=== PATIENT | female | born 1960 | race Hispanic/Latino ===

== ENCOUNTER 2024-06-03 06:41 | Inpatient (IN) | payer SELFPAY ==
[~2024-06-03] VITALS: Ht 157.5 cm; Wt 63.5 kg
[2024-06-03] MEDS ORDERED: LACTATED RINGERS 1000ML 1,000 ML IV ONE (07:00)
[2024-06-03] MEDS ORDERED: 0.9%NACL 1000ML 1,000 ML IV ONE (07:00)
[2024-06-03] MEDS: 0.9%NACL 1000ML 1,905 ML IV ONE (07:05)
[2024-06-03 07:08] LABS: BASOPHILS # (AUTO) 0.08 K/uL (0.00-0.20); BASOPHILS % (AUTO) 0.6 % (0.0-5.0); EOSINOPHILS # (AUTO) 0.07 K/uL (0.00-0.70); EOSINOPHILS % (AUTO) 0.5 % (0.0-8.0); HEMATOCRIT 35.8 % (36-48); IMMATURE GRANULOCYTE ABSOLUTE 0.07 K/uL (0-1); LYMPHOCYTES # (AUTO) 5.1 K/uL (1.0-4.8); LYMPHOCYTES % (AUTO) 37.9 % (21.0-51.0); MEAN CORPUSCULAR HGB CONC 31.6 g/dL (32.0-36.0); MEAN CORPUSCULAR VOLUME 91.8 fL (79-99); MONOCYTES # (AUTO) 0.4 K/uL (0.1-1.0); MONOCYTES % (AUTO) 3.3 % (3.0-13.0); NEUTROPHILS # (AUTO) 7.7 K/uL (1.8-7.7); NEUTROPHILS % (AUTO) 57.2 % (40.0-77.0); PLATELET COUNT (AUTO) 302 K/uL (130-400); RED CELL DISTRIBUTION WIDTH 12.5 % (11.0-15.5); WHITE BLOOD COUNT (AUTO) 13.5 K/uL (4.8-10.8)
[2024-06-03] MEDS: PANTOPrazole 40 MG/VIAL IVP ONE (07:08)
[2024-06-03] MEDS: ondanSETRON 4MG INJ IVP ONE (07:08)
[2024-06-03] MEDS: NOREPINEPHRIN 4MG/NS 250ML 250 ML IV ONE (07:14)
--- NOTE | 2024-06-03 07:18 | NUR ---
LAC-9.0 ERMD MADE AWARE
[2024-06-03 07:21] LABS: ALBUMIN 3.8 g/dL (3.5-5.0); CREATININE 1.4 mg/dL (0.5-1.0); POTASSIUM 3.5 mmol/L (3.5-5.1)
[2024-06-03 07:25] LABS: BILIRUBIN,TOTAL 0.5 mg/dL (0.2-1.0); TOTAL PROTEIN, SERUM 7.3 g/dL (6.0-8.3)
[2024-06-03] MEDS ORDERED: ZOSYN 3.375GM +NS 50ML IV ONE (07:30)
[2024-06-03] MEDS ORDERED: cefTRIAXone 1G VIAL IVPB ONE (07:30)
--- NOTE | 2024-06-03 07:43 | NUR ---
[id number] ERMD MADE AWARE
--- NOTE | 2024-06-03 07:44 | ERN ---
ED Note History of Present Illness Stated Complaint: ABDOMINAL PAIN, CHEST PAIN Chief Complaint: Abdominal Pain Time Seen by MD: 07:29 Dictation: 64-year-old female presents to the ED for evaluation of abdominal pain onset last night. Patient reports weakness, vomiting and chest pain, but denies any other associated symptoms at this time. EMS reports patient was hypotensive, they administered IV fluids and Levophed on route. Allergies: Coded Allergies: No Known Allergies (Unverified Allergy, Unknown, 06/03/24) Past Medical History Past Medical History: Diabetes-Type II, GERD, Hypertension Surgical History: Hysterectomy Review of System Dictation Constitutional: Negative for fever,chills, and weight loss Eyes: Negative for injury, pain,redness, and discharge ENT: Negative for injury,pain or swelling Cardiovascular: Positive for chest pain negative for palpitations, and edema Respiratory: Negative for shortness of breath, cough, and wheezing, Abdomen/GI: Positive for abdominal pain vomiting, negative for nausea, diarrhea, and constipation Back: Negative for injury and pain : Negative for injury, bleeding and discharge MS/Extremity: Negative for injury and deformity Skin: Negative for rash, and discoloration Neuro: Positive for weakness, Negative for headache, numbness, tingling, and seizure Psych: Negative for suicide ideation, homicidal ideation, and hallucinations Initial Vital Sign VS Vital Signs Date Time Temp Pulse Resp B/P (MAP) Pulse Ox O2 Delivery O2 Flow Rate FiO2 06/03/24 06:48 96.3 53 24 63/37 100 Room Air 0 06/03/24 06:50 21 Physical Exam Dictation General: awake, alert, patient is uncomfortable Head/Face: Normocephalic, atraumatic Eyes: PERRL, EOMI, vision at baseline ENT: oral cavity clear, TMs clear, no signs of infection Neck: Trachea midline, supple, no nuchal rigidity Cardiovascular: Bradycardic, No MRGs, no JVD, delayed capillary refills Respiratory: CTAB, no respiratory distress, No rales or wheezes Abdomen: Soft, non-tender, non-distended, normal bowel sounds, no guarding or rebound. Skin: Warm, dry, normal turgor, no rash, pale, cold to touch MS/Extremity: Pulses equal, no cyanosis, neurovascular intact, FROM Neuro: COAx4, GCS 15, strength 5/5, CN 2-12 intact, normal cerebellar exam, normal gait, Psych: Normal behavior, mood, and affect normal Results (Laboratory/Radiology) Laboratory/Radiology Laboratory Tests Test 06/03/24 06:53 06/03/24 07:00 06/03/24 07:20 Sodium Level 133 mmol/L (136-145) L Potassium Level 3.5 mmol/L (3.5-5.1) Chloride Level 98 mmol/L (101-111) L Carbon Dioxide Level 20 mmol/L (21-32) L Blood Urea Nitrogen 16 mg/dL (7-18) Creatinine 1.4 mg/dL (0.5-1.0) H Glomerular Filtration Rate Calc 42 mL/min (>90) Random Glucose 494 mg/dL (70-105) *H Lactic Acid Level 9.0 mmol/L (0.8-2.5) H Total Calcium 11.4 mg/dL (8.5-10.1) H Total Bilirubin 0.5 mg/dL (0.2-1.0) Aspartate Amino Transf (AST/SGOT) 29 U/L (10-37) Alanine Aminotransferase (ALT/SGPT) 21 U/L (12-78) Alkaline Phosphatase 77 U/L (50-136) Total Creatine Kinase 81 U/L (21-232) Total Protein 7.3 g/dL (6.0-8.3) Albumin 3.8 g/dL (3.5-5.0) Lipase 32 U/L (16-77) White Blood Count 13.5 K/uL (4.8-10.8) H Red Blood Count 3.90 MIL/uL (4.00-5.50) L Hemoglobin 11.3 g/dL (12.0-16.0) L Hematocrit 35.8 % (36-48) L Mean Corpuscular Volume 91.8 fL (79-99) Mean Corpuscular Hemoglobin 29.0 pg (27.0-33.0) Mean Corpuscular Hemoglobin Concent 31.6 g/dL (32.0-36.0) L Red Cell Distribution Width 12.5 % (11.0-15.5) Platelet Count 302 K/uL (130-400) Mean Platelet Volume 10.9 fL (7.5-10.5) H Immature Granulocyte % (Auto) 0.5 % (0-1) Neutrophils (%) (Auto) 57.2 % (40.0-77.0) Lymphocytes (%) (Auto) 37.9 % (21.0-51.0) Monocytes (%) (Auto) 3.3 % (3.0-13.0) Eosinophils (%) (Auto) 0.5 % (0.0-8.0) Basophils (%) (Auto) 0.6 % (0.0-5.0) Neutrophils # (Auto) 7.7 K/uL (1.8-7.7) Lymphocytes # (Auto) 5.1 K/uL (1.0-4.8) H Monocytes # (Auto) 0.4 K/uL (0.1-1.0) Eosinophils # (Auto) 0.07 K/uL (0.00-0.70) Basophils # (Auto) 0.08 K/uL (0.00-0.20) Absolute Immature Granulocyte (auto 0.07 K/uL (0-1) Segmented Neutrophils % 59 % (40-70) Band Neutrophils % 3 % (0-2) H Lymphocytes % (Manual) 22 % (22-44) Monocytes % (Manual) 5 % (2-9) Basophils % (Manual) 1 % (0-2) Nucleated Red Blood Cells 0.0 % (0.0-0.19) Differential Comment MANUAL DIFFERENTIAL Reactive Lymphocytes 10 % (0-0) H White Cell Morphology Comment CONSISTENT W/DIFF Platelet Morphology Comment ADEQUATE Red Blood Cell Morphology NORMAL Prothrombin Time 10.9 SEC (9.6-11.6) Prothromb Time International Ratio 1.03 (0.85-1.15) Activated Partial Thromboplast Time 21.4 SEC (26.3-35.5) L Troponin I High Sensitivity 2452 ng/L (4-50) *H Whole Blood Glucose 372 MG/DL (70-110) H Labs Reviewed?: Yes EKG Comment: EKG 06/03/2024 time 8:03 a.m. ventricular rate 68, NJ 137, QRS D 156, QT 447. Sinus rhythm, ventricular premature complex, RBBB and LAFB. CT Scan Comment: REASON: r/o SBo ORDERING PHYSICIAN: JAZMIN GONZALEZ MD PROCEDURE: CAP WO - CT CHEST/ABD/PELV W/O CONTRAST CT CHEST/ABD/PELV W/O CONTRAST HISTORY: Small bowel obstruction COMPARISON: None TECHNIQUE: Multiple sequential axial images of the chest were obtained from the thoracic inlet through upper abdomen. Patient was not given contrast through intravenous route. FINDINGS: There are bilateral groundglass pulmonary infiltrates. No pleural effusion or pericardial effusion is seen. There is no evidence of pneumothorax. Borderline in size mediastinal lymph nodes are seen. The heart is not enlarged. Coronary arterial calcifications are seen. Degenerative changes of the thoracolumbar spine are present. There is no evidence of adrenal nodule. IMPRESSION: 1. Bilateral groundglass patchy pulmonary infiltrates. CT CHEST/ABD/PELV W/O CONTRAST HISTORY: Small bowel obstruction COMPARISON: None TECHNIQUE: Multiple sequential axial images of the abdomen and pelvis were obtained from the dome of the diaphragm through symphysis pubis. Patient was not given contrast through intravenous route. Oral contrast was not given. FINDINGS: Gallstones are seen in the gallbladder. Fatty changes of the liver are noted. Liver measures 19 cm. Mild small bowel dilatation is seen with fluid-filled may be related to enterocolitis. There is mild diverticulosis. The liver, spleen, adrenal glands and pancreas are unremarkable. There is no evidence of hydronephrosis bilaterally. No evidence of renal stone is seen. Fecal material is seen in the colon. There are normal size retroperitoneal and mesenteric lymph nodes. No ascites is seen. No CT evidence of acute appendicitis is seen. Clinical correlation is recommended. Pelvic sidewalls are symmetric bilaterally. Bladder is poorly distended with fluid filled. IMPRESSION: 1. Gallstones in the gallbladder. Mild small bowel dilatation with fluid-filled may be related to enterocolitis. Fecal material in the colon. CT was performed with one or more following dose reduction techniques: automated exposure control, adjustment of the mA and kv according to patient's size, or use of a iterative reconstruction technique. DICTATED BY: KAROLINE ELLINGTON MD DATE: 06/03/24828 ED Course ED Course Orders Procedure Category Date Status Time Cbc With Differential LAB 06/03/24 Complete 06:53 Comprehensive LAB 06/03/24 Complete Metabolic Panel 06:53 Troponin I High LAB 06/03/24 Complete Sensitivity 06:53 Urinalysis Profile LAB 06/03/24 Logged 06:53 12 Lead Ekg Tracing- EKG 06/03/24 Complete Technical 06:53 Lactated Ringers PHA 06/03/24 Complete 1000ml (Lactated 07:00 Ondansetron 4mg Inj PHA 06/03/24 Complete (Zofran 4mg Inj) 07:00 Pantoprazole 40mg Inj PHA 06/03/24 Complete (Protonix 40mg Inj 07:00 Creatine Kinase, Total LAB 06/03/24 Complete 06:53 Lipase LAB 06/03/24 Complete 06:53 0.9%Nacl 1000ml (Ns PHA 06/03/24 Complete 1000ml) 07:00 Blood Cult EVELYNE 06/03/24 In Process 06:56 Culture Urine EVELYNE 06/03/24 Logged 06:56 0.9%Nacl 1000ml (Ns PHA 06/03/24 Complete 1000ml) 07:00 Norepinephrin 4mg/Ns PHA 06/03/24 Complete 250ml (Levophed 4mg 07:04 Chest 1vw RAD 06/03/24 Resulted 07:04 Ceftriaxone 1g Vial PHA 06/03/24 Complete (Rocephine 1g Inj) 07:30 Lactic Acid (Removed) LAB 06/03/24 Complete 06:53 Nurse Driven Ley SHAYLA 06/03/24 In Process Removal Pro 07:20 Vasopressin 20 PHA 06/03/24 Complete Units/Ml 1ml Vi 07:25 Zosyn 3.375gm+Ns 50ml PHA 06/03/24 Complete (Zosyn 3.375gm+Ns 07:30 Vasopressin 20 PHA 06/03/24 In Process Units/Ml 1ml Vi 08:00 Norepinephrin 4mg/Ns PHA 06/03/24 In Process 250ml (Levophed 4mg 08:00 Phenylephrine Hcl PHA 06/03/24 In Process (Phenylephrine Hcl) 08:00 Ct Chest/Abd/Pelv W/O CT 06/03/24 Resulted Contrast 07:43 Morphine 4mg Syg PHA 06/03/24 Complete (Morphine 4mg Syg) 08:30 12 Lead Ekg Tracing- EKG 06/03/24 Complete Technical 08:07 Arterial Blood Gas RT 06/03/24 Transmitted 08:10 Initiate Heparin SHAYLA 06/03/24 In Process Treatment Pro 08:11 Prothrombin Time With LAB 06/03/24 Complete INR 08:11 Partial LAB 06/03/24 Complete Thromboplastin Time 08:11 Heparin 5,000 Unit PHA 06/03/24 In Process Vial (Heparin 5,000 U 09:00 Heparin 25,000 PHA 06/03/24 In Process Units/250ml D5w 09:00 Heparin Protocol CPOE 06/03/24 Transmitted Monitoring 08:11 Midazolam Hcl (Versed) PHA 06/03/24 Complete 08:13 12 Lead Ekg Tracing- EKG 06/03/24 Complete Technical 06:50 Chest 1vw RAD 06/03/24 Resulted 08:23 Insurance Clerk Procedure CATH 06/03/24 In Process Request 12:00 Amiodarone 150mg Vial PHA 06/03/24 Complete (Cordarone 150mg V 08:25 Amiodarone 150mg Vial PHA 06/03/24 Complete (Cordarone 150mg V 08:25 Amiodarone 900mg Vial PHA 06/03/24 In Process (Cordarone 900mg V 09:00 Amiodarone 900mg Vial PHA 06/03/24 In Process (Cordarone 900mg V 09:00 Atropine 1mg Syg PHA 06/03/24 Complete (Atropine 1mg Syg) 08:48 Lidocaine Hcl PHA 06/03/24 Complete 400mg/20ml (Lidocaine 08:48 Fentanyl Citrate Pf PHA 06/03/24 Complete 0.05 Mg/Ml (Fentanyl 08:48 Midazolam Hcl (Versed) PHA 06/03/24 Complete 08:48 Iohexol (Omnipaque) PHA 06/03/24 Complete 08:48 Heparin 10,000 PHA 06/03/24 Complete Unit/10ml (Heparin 08:48 Dopamine Hcl 400 PHA 06/03/24 Complete Mg/D5%-Water (Intropin 08:48 Heparin-Ns 1,000 PHA 06/03/24 Complete Unit/500 Ml 08:49 Nitroglycerin 50mg PHA 06/03/24 Complete Vial (Tridil 50mg/10m 08:49 Midazolam Hcl (Versed) PHA 06/03/24 Complete 09:30 Etomidate 20mg Vial PHA 06/03/24 Complete (Amidate 20mg Vial) 09:30 Amiodarone 150mg Vial PHA 06/03/24 In Process (Cordarone 150mg V 09:30 Epinephrine Pf 1mg PHA 06/03/24 Complete (1:1,000) (Adrenaline 09:35 Admit Orders ADM 06/03/24 Transmitted 09:35 Norepinephrine PHA 06/03/24 Complete Bitartrate 09:40 Manual Differential LAB 06/03/24 Complete 07:00 Vital Signs Date Time Temp Pulse Resp B/P (MAP) Pulse Ox O2 Delivery O2 Flow Rate FiO2 06/03/24 08:50 78 16 73/44 93 Non-Rebreather+ 12 60 06/03/24 08:45 98.4 87 16 125/83 100 Room Air* 0 60 Non-Rebreather+ 06/03/24 08:32 87 100 06/03/24 08:30 64 20 122/74 88 Room Air* 12 60 Non-Rebreather+ 06/03/24 08:30 73/44 06/03/24 08:10 64 18 108/69 99 Non-Rebreather+ 12 60 06/03/24 07:56 98.4 51 24 93/61 100 Nasal Cannula* 2 28 06/03/24 07:45 97.5 80 20 122/79 100 Nasal Cannula* 2 28 06/03/24 07:45 97.5 59 20 105/66 99 Nasal Cannula* 2 28 06/03/24 07:15 96.3 48 20 56/32 100 Room Air* 0 21 06/03/24 07:14 105/54 06/03/24 07:00 96.3 51 20 66/39 100 Room Air* 0 21 06/03/24 06:50 51 20 99 Room Air* 0 21 06/03/24 06:48 96.3 53 24 63/37 100 Room Air 0 HEART Score Response (Comments) Value History: Low suspicion (0) 0 EKG: Normal 0 Age: 45-65yrs (+1) 1 Risk Factors: 1-2 risk factors (+1) 1 Initial Troponin: >3x Normal Limit (+2) 2 HEART Score Risk: Mod Risk for MACE (4-6) Total 4 Medical Decision Making MDM MDM: Differential diagnosis: hypoxemia, abdominal pain, STEMI Dr. Avalos took patient to Cathlab 0902- Hospitalist consult ICU team is Holding ICU admission due to cardiac arrest during metallurgical laboratory assistant procedure Will start IV antibiotics, fluids and pressors due to concern for septic shock. Rationale: Tests considered and ordered secondary to shared decision making incl ude: labs, ECG and radiology Risk of complication and/or morbidity or mortality of patient management: None Medications-Per medication reconciliation Need for hospitalization: Patient does meet criteria for hospitalization. Need for emergency major/minor surgery:yes I independently interpreted the test that were performed, results were reviewed by me and considered findings on radiology if ordered. Medical management and examination interpretation discussions were had by me with other qualified healthcare professionals as indicated for the patient's care. Patient was handed off at shift change, presentation was an unstable patient who arrived with hypotension and bradycardia systolic blood pressure was in the 60s upon arrival with assembler 1st shift, patient was started on IV fluids pressors and antibiotics due to the concern for septic shock, also concern for acute inferior RI however patient. Clinically unstable to take the metallurgical laboratory assistant and required rule out of AAA patient was scan without contrast no obvious dissection was noted moved back to the resuscitation room, at which point patient oxygen and started to drop was placed on non-rebreather, and required RSI intubation, patient was intubated with PEEP valve to avoid for anai intubation arrest. Patient had intermittent episodes of hypotension and had brief cardiac arrest requiring CPR/ACLS protocol followed two rounds of epi and chest compressions were done, patient at return of spontaneous circulation and had one run of monomorphic ventricular tachycardia with that was defibrillated at 200 joules immediately with conversion into sinus rhythm and they palpable central pulse. At which point patient was anticoagulated with heparin given amiodarone and metallurgical laboratory assistant was called for evaluation Dr. Avalos came to the bedside and agreed with taking patient to metallurgical laboratory assistant now that she was intubated and maintaining a stable blood pressure. Family was updated that patient was gravely ill and had a high likelihood of cardiac arrest and the rest of survival due to be in cardiogenic shock with an RI. Pt transferred to rn lab and admit to ICU spoke to cell operation supervisor who agrees with treatment plan and admission. Procedure Time of Intubation: 08:23 Intubation Method: orotracheal Tube Size (cm): 7.5 Medications: Versed (Etomidate and rocuronium) Breath Sounds after Intubation: equal Intubation Complications: no complications Post Intubation Xray: Yes Progress Decided to intubate patient for airway protection. The patient was placed on kids activities coach including continuous pulse oximetry. Rapid sequence intubation was conducted. Patient received 2 mg of Versed, 10 mg of etomidate and 50 mg of rocuronium. Using a laryngoscope and a size 7.5 ET tube with stylet the patient was intubated on the 1st attempt. The stylet was removed and cuff balloon was inflated. Appropriate endotracheal tube position was confirmed by direct visualization of vocal cords, fogging of the tube, color change and symmetric breath sounds. The tube was secured at 22 cm at the lips. Additional Procedures: CPR (8:28 a.m. CPR was initiated and ACLS protocol followed. Drugs: Epinephrine, bicarb and calcium. Total CPR time: 4 minutes.) Critical Care Note Critical Time: other (Total critical care time was 40 minutes. Excluding time for procedures. Management of critically ill patient with concern for acute decompensation. Management included interpretation of laboratory values and imaging, hemodynamics, time for consultation with consultants and admitting physician.) DX & DISP Disposition: Inpatient Decision to Admit Date: Jun 03, 2024 Decision to Admit Time: 09:03 Departure Impression: Primary Impression: Cardiogenic shock Additional Impressions: Respiratory failure, Acute RI Condition: Critical Referrals: SELF,REFERRAL (PCP) I personally scribed for JAZMIN GONZALEZ MD ([email or web address]) on 06/03/24 at 08:49. Electronically submitted by Edin Cervantes (BCARRLion StreetO). I personally scribed for JAZMIN GONZALEZ MD ([email or web address]) on 06/03/24 at 09:09. Electronically submitted by Edin Cervantes (BCARRETERO). JAZMIN GONZALEZ MD Jun 03, 2024 07:44
[2024-06-03] MEDS ORDERED: phenylEPHRINE HCL 10 MG in 0.9% NACL 250ML 250 ML IV PRN (08:00)
[2024-06-03] MEDS ORDERED: VASOpressin 20 UNITS/ML 1ML Vi 20 UNITS in 0.9%NACL 100ML 100 ML IV SCH (08:00)
--- NOTE | 2024-06-03 08:10 | NUR ---
ERMD ORDERS INTUBATION, RT CALLED, PT PLACED ON NON REBREATHER MASK AT 12LPM
--- NOTE | 2024-06-03 08:11 | EKG ---
[facility] Test Date: 2024-06-03 Test Time: 08:03:54 Pat Name: QING GARZON Department: EDH Room: ED Gender: F Venereal Disease Investigator: [id number] : 1960 Requested By: JAZMIN GONZALEZ Order Number: [id number] Reading MD: Farnco Avalos Measurements Intervals [place] Rate: 68 P: 98 FL: 137 QRS: -46 QRSD: 156 T: 18 QT: 447 QTc: 482 Interpretive Statements Sinus rhythm Ventricular premature complex RBBB and LAFB No previous ECG available for comparison Electronically Signed On 06-03-2024 18:25:06 MANAGER DIGITAL by Franco Avalos Please click the below link to view image of tracing.
--- NOTE | 2024-06-03 08:14 | EKG ---
[facility] Test Date: 2024-06-03 Test Time: 06:51:52 Pat Name: QING GARZON Department: EDH Room: ED Gender: F Obstetrician And Gynaecologist: [id number] : 1960 Requested By: YADIEL DAMICO Order Number: [id number] Reading MD: Franco Avalos Measurements Intervals [place] Rate: 53 P: 92 OR: 114 QRS: 15 QRSD: 116 T: 127 QT: 445 QTc: 419 Interpretive Statements Sinus rhythm Incomplete left bundle branch block Low voltage, precordial leads LVH with secondary repolarization abnormality Anterior Q waves, possibly due to LVH Borderline ST elevation, inferior leads No previous ECG available for comparison Electronically Signed On 06-03-2024 18:24:56 RESIDENT CARE SPEC by Franco Avalos Please click the below link to view image of tracing.
--- NOTE | 2024-06-03 08:15 | NUR ---
STEMI CALLED AT THIS TIME
--- NOTE | 2024-06-03 08:15 | NUR ---
HEPOARIN 5,000 UNIT BOLUS GIVEN IVP PER ERMD ORDERS
--- NOTE | 2024-06-03 08:15 | EKG ---
[facility] Test Date: 2024-06-03 Test Time: 08:34:50 Pat Name: QING GARZON Department: EDH Room: ED Gender: Female Forming Machine Upkeep Mechanic: [id number] : 1960 Requested By: JAZMIN GONZALEZ Order Number: [id number] Reading MD: Franco Avalos Measurements Intervals [place] Rate: 112 P: 72 PA: 256 QRS: -54 QRSD: 180 T: 102 QT: 438 QTc: 615 Interpretive Statements Wide complex tachycardia Electronically Signed On 06-03-2024 18:25:55 DIAMOND SIZER AND SORTER by Franco Avalos Please click the below link to view image of tracing.
--- NOTE | 2024-06-03 08:18 | NUR ---
VERSED 2 MG GIVEN IVP
--- NOTE | 2024-06-03 08:20 | NUR ---
10MG OF ETOMIDATE GIVEN IVP
--- NOTE | 2024-06-03 08:21 | NUR ---
50MG OF ROCCOROUNIUM GIVEN IVP
--- NOTE | 2024-06-03 08:23 | NUR ---
INTUBATION BY ERMD WITH 7.5 ETT TUBE, 22 LIP, INTUBATION CONFIRMED WITH POST INTUBATION X RAY, BILATERAL BREATH SOUNDS, CHEST RISE AND FALL,
[2024-06-03] MEDS: AMIOdarone 150MG VIAL IV STA (08:26)
--- NOTE | 2024-06-03 08:26 | NUR ---
AMIODARONE 150 MG IVP FOR INTERMITENT V TACH
--- NOTE | 2024-06-03 08:28 | NUR ---
CODE BLUE CALLED, COMPRESSIONS STARTED, REFER TO CODE BLUE FLOW SHEET
[2024-06-03] MEDS ORDERED: morPHINE 4 MG SYG IVP ONE (08:30)
[2024-06-03] MEDS: NOREPINEPHRIN 4MG/NS 250ML 250 ML IV SCH (08:30)
[2024-06-03 08:32] VITALS: PULSE 87; O2SAT 100
--- NOTE | 2024-06-03 08:36 | HMCIMG ---
CT CHEST/ABD/PELV W/O CONTRAST HISTORY: Small bowel obstruction COMPARISON: None TECHNIQUE: Multiple sequential axial images of the chest were obtained from the thoracic inlet through upper abdomen. Patient was not given contrast through intravenous route. FINDINGS: There are bilateral groundglass pulmonary infiltrates. No pleural effusion or pericardial effusion is seen. There is no evidence of pneumothorax. Borderline in size mediastinal lymph nodes are seen. The heart is not enlarged. Coronary arterial calcifications are seen. Degenerative changes of the thoracolumbar spine are present. There is no evidence of adrenal nodule. IMPRESSION: 1. Bilateral groundglass patchy pulmonary infiltrates. CT CHEST/ABD/PELV W/O CONTRAST HISTORY: Small bowel obstruction COMPARISON: None TECHNIQUE: Multiple sequential axial images of the abdomen and pelvis were obtained from the dome of the diaphragm through symphysis pubis. Patient was not given contrast through intravenous route. Oral contrast was not given. FINDINGS: Gallstones are seen in the gallbladder. Fatty changes of the liver are noted. Liver measures 19 cm. Mild small bowel dilatation is seen with fluid-filled may be related to enterocolitis. There is mild diverticulosis. The liver, spleen, adrenal glands and pancreas are unremarkable. There is no evidence of hydronephrosis bilaterally. No evidence of renal stone is seen. Fecal material is seen in the colon. There are normal size retroperitoneal and mesenteric lymph nodes. No ascites is seen. No CT evidence of acute appendicitis is seen. Clinical correlation is recommended. Pelvic sidewalls are symmetric bilaterally. Bladder is poorly distended with fluid filled. IMPRESSION: 1. Gallstones in the gallbladder. Mild small bowel dilatation with fluid-filled may be related to enterocolitis. Fecal material in the colon. CT was performed with one or more following dose reduction techniques: automated exposure control, adjustment of the mA and kv according to patient's size, or use of a iterative reconstruction technique.
--- NOTE | 2024-06-03 08:37 | NUR ---
DR. BOWMAN AT BEDSIDE
[2024-06-03 08:45] VITALS: TEMP 98.4
--- NOTE | 2024-06-03 08:46 | NUR ---
AMIODARONE [address] IVP PER [address] HIDALGO ORDERS
[2024-06-03 08:48] LABS: INR 1.03 (0.85-1.15); PROTHROMBIN TIME 10.9 SEC (9.6-11.6)
[2024-06-03] MEDS ORDERED: MIDAZOLAM HCL 1 MG/ML 2ML VIAL ONE (08:48)
[2024-06-03] MEDS ORDERED: HEParin 10,000 UNIT/10ML (1,000 UNIT/ML) VIAL ONE (08:48)
[2024-06-03] MEDS ORDERED: DOPamine HCL 400 MG/D5%-WATER 0 ML IV ONE (08:48)
[2024-06-03] MEDS ORDERED: ATROPINE 1MG SYG IVP ONE ×2 (08:48→09:43)
[2024-06-03] MEDS ORDERED: LIDOCAINE HCL 400MG/20ML VIAL ONE (08:48)
[2024-06-03] MEDS ORDERED: FENTanyl CITRate PF 50 MCG/1 ML 2ML VIAL ONE (08:48)
[2024-06-03] MEDS ORDERED: IOHEXOL 350 MG/ML 100ML INFUS..BTL IV ONE (08:48)
[2024-06-03 08:49] LABS: PARTIAL THROMBOPLASTIN TIME 21.4 SEC (26.3-35.5)
[2024-06-03] MEDS ORDERED: NITROGLYCERIN 50MG VIAL ONE (08:49)
[2024-06-03] MEDS ORDERED: HEParin-NS 1,000 UNIT/500 ML 1,500 ML IV ONE (08:49)
[2024-06-03 08:50] VITALS: BP 73/44; PULSE 78; RESP 16; O2SAT 93
[2024-06-03] MEDS ORDERED: AMIOdarone 900MG VIAL 360 MG in DEXTROSE 5%-WATER 200 ML IV SCH (09:00)
[2024-06-03] MEDS ORDERED: HEParin 5,000 UNIT VIAL IV PRN (09:00)
[2024-06-03] MEDS ORDERED: HEParin 25,000 UNITS/250ML D5W 250 ML IV SCH (09:00)
[2024-06-03] MEDS ORDERED: AMIOdarone 900MG VIAL 540 MG in DEXTROSE 5%-WATER 300 ML IV SCH (09:00)
[2024-06-03] MEDS: MIDAZOLAM HCL 1 MG/ML 2ML VIAL ONE (09:13)
[2024-06-03] MEDS: AMIOdarone 150MG VIAL ONE (09:16)
[2024-06-03] MEDS: VASOpressin 20 UNITS/ML 1ML VIAL ONE (09:17)
[2024-06-03] MEDS ORDERED: AMIOdarone 150MG VIAL 150 MG in DEXTROSE 5%-WATER 100 ML IV SCH (09:30)
[2024-06-03] MEDS ORDERED: ETOMIDATE 20MG VIAL IVP ONE (09:30)
[2024-06-03] MEDS ORDERED: MIDAZOLAM HCL 1 MG/ML 2ML VIAL IVP ONE (09:30)
[2024-06-03] MEDS ORDERED: EPINEPHrine PF 1MG (1:1,000) 1 MG/ML AMP ONE (09:35)
[2024-06-03] MEDS ORDERED: NOREPINEPHRINE BITARTRATE 1 MG/1 ML ML IV ONE (09:40)
[2024-06-03] MEDS ORDERED: rocuRONium bROMide 10MG/1ML 5ML VL IV ONE (09:43)
[2024-06-03] MEDS ORDERED: AMIOdarone 150MG VIAL IV ONE (09:43)
--- NOTE | 2024-06-03 09:57 | CONS ---
[facility] Cardiology Consultation Note SUMMARY 09/25/2024 This is a 64-year-old female who presented with chest and epigastric pain associated with nausea and vomiting that began yesterday evening. There was concern about a small bowel obstruction and a CT scan of the abdomen was performed which showed evidence of cholelithiasis with small bowel dilatation consistent with possible enterocolitis. Pain began radiating from the epigastric area to the chest and an electrocardiogram showed [address]-elevation and AVF and [address]-elevation in lead two. At that point the patient developed pulseless electrical activity and full ACLS measures were instituted. She was coded for about 5-10 minutes and regained a pulse with a blood pressure of 80 on pressors. I was contacted at that point and recommended that she go emergently to the catheterization laboratory. I explained to the family that she had already had a cardiopulmonary arrest and was in cardiogenic shock and may not survive the procedure. She was brought to the catheterization laboratory and no pulse was obtainable. ACLS was again reinstituted. In the interim venous lines were placed in an arterial line was placed in the left femoral artery. We regained a pulse and blood pressure in the 80s systolic after 20 minutes of CPR and full ACLS measures. 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 A choice PT wire was placed across the area of stenosis and two balloon dilatations were performed distally and proximally. At that point the patient again developed no pulse and CPR and full ACLS measures were reinstituted. Despite this she never regained a pulse and was pronounced at 9:41 p.m.. The family was attended to and condolences given. Final diagnoses acute inferior ST-elevation myocardial infarction complicated by cardiogenic shock and cardiopulmonary arrest with pulseless electrical activity. Report dictated by Kelsy HIDALGO,KELSY Gutierrez MD Jun 03, 2024 09:57
--- NOTE | 2024-06-03 09:59 | PRN ---
Cath Procedure Report CATH PROCEDURE REPORT CARDIAC CATHETERIZATION REPORT Date of Service: Jun 03, 2024 This patient had presented to the emergency room with more than 12 hours of nausea vomiting epigastric and chest pain. It was initially evaluated for possible small-bowel obstruction which was not confirmed on the CT scan. At that point her electrocardiogram showed [address]-elevation and AVF and [address]- elevation in V3. That point the patient developed pulseless electrical activity and received about 5 minutes of CPR. [place] [address] hemoglobin 11.3 platelet count 409633. Potassium 3.5 BUN 16 creatinine 1.4. Troponin was 2452. Lactic acid was 9.0. A pulse was restored with a blood pressure of 80 systolic on pressors. She was brought emergently to the catheterization laboratory after full discussion with the family. I explained to the family that she may arrest again and may not survive the procedure. On arrival in the [facility] no pulse could be obtained. CPR and ACLS was reinstituted. In the interim while performing CPR venous lines and a left femoral arterial line were placed. After 20 minutes a pulse was regained with a blood pressure of again about 80 systolic on pressors. A GR four guiding catheter with side holes was advanced to the aortic root over a J-wire. The J- wire was removed and the catheter engaged into the [place] right coronary artery which was visualized. 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 A choice PT wire was placed across the area of stenosis into the distal posterolateral branch however at that time the patient again developed pulseless electrical activity and CPR was reinstituted. Compressions and one point were terminated briefly to perform a distal and proximal balloon dilatation with a 2.25 x 15 mm balloon. Despite this no pulse was regained and CPR continued. Despite full ACLS measures no pulses could be obtained and the patient was pronounced at 9:44 a.m.. The family attended to. Final diagnoses inferior wall ST-elevation NH with late presentation complicated by cardiogenic shock and cardiopulmonary arrest with pulseless electrical activity. Report dictated by KELSY Toure MD, MD Jun 03, 2024 09:59
[2024-06-03 10:03] LABS: BAND NEUTROPHILS % (MANUAL) 3 % (0-2); BASOPHILS % (MANUAL) 1 % (0-2); LYMPHOCYTES % (MANUAL) 22 % (22-44); MONOCYTES % (MANUAL) 5 % (2-9); REACTIVE LYMPHOCYTES 10 % (0-0); SEGMENTED NEUTROPHILS % 59 % (40-70); TOTAL CELLS COUNTED 100
[2024-06-03 10:06] LABS: MAN.DIFF COMMENT-IMPRESSION MANUAL DIFFERENTIAL; PLATELET MORPHOLOGY COMMENT ADEQUATE; WBC MORPHOLOGY CONSISTENT W/DIFF
--- NOTE | 2024-06-03 11:20 | HMCIMG ---
CHEST 1VW HISTORY: Intubation COMPARISON: None FINDINGS: A frontal projection of the chest was obtained. There are bilateral pulmonary infiltrates suggestive of pulmonary vascular congestion with possible superimposed pneumonitis. The heart is borderline enlarged. Endotracheal tube is seen with distal tip at 3.6 cm above rianna. All the lines and tubes are again seen in place. No evidence of aortic calcification is seen. IMPRESSION: 1. Bilateral pulmonary infiltrates are seen suggestive of pulmonary vascular congestion with possible superimposed pneumonitis.
--- NOTE | 2024-06-03 11:21 | HMCIMG ---
CHEST 1VW HISTORY: Chest pain COMPARISON: None FINDINGS: A frontal projection of the chest was obtained. Mild bilateral pulmonary infiltrates are seen may be related to mild pulmonary vascular congestion with possible superimposed pneumonitis. The heart is borderline enlarged. Degenerative changes are seen. Aortic calcifications are seen. IMPRESSION: 1. Mild bilateral pulmonary infiltrates are seen may be related to mild pulmonary vascular congestion with possible superimposed pneumonitis.
== END 2024-06-03 09:44 | DRG 251 ==
LOC: EDH 06:41 → EDHIP 06:42
PROVIDERS: ADMIT Internal Medicine Cardiovascular Disease; ATTEND Internal Medicine Cardiovascular Disease
PROC: 02703ZZ Dilation of Coronary Artery, One Artery, Percutaneous Approach (ICD-10-PCS; principal; 2024-06-03)
PROC: 4A023N7 Measurement of Cardiac Sampling and Pressure, Left Heart, Percutaneous Approach (ICD-10-PCS; 2024-06-03)
PROC: B2111ZZ Fluoroscopy of Multiple Coronary Arteries using Low Osmolar Contrast (ICD-10-PCS; 2024-06-03)
PROC: 5A12012 Performance of Cardiac Output, Single, Manual (ICD-10-PCS; 2024-06-03)
PROC: 0BH17EZ Insertion of Endotracheal Airway into Trachea, Via Natural or Artificial Opening (ICD-10-PCS; 2024-06-03)
PROC: 03HY32Z Insertion of Monitoring Device into Upper Artery, Percutaneous Approach (ICD-10-PCS; 2024-06-03)
DX: I21.19 ST elevation (STEMI) myocardial infarction involving other coronary artery of inferior wall (principal); I46.9 Cardiac arrest, cause unspecified; K80.20 Calculus of gallbladder without cholecystitis without obstruction; E11.9 Type 2 diabetes mellitus without complications; I10 Essential (primary) hypertension; K21.9 Gastro-esophageal reflux disease without esophagitis; Z90.710 Acquired absence of both cervix and uterus
CPT/HCPCS: 31500; 36415; 71045; 71250; 74176; 80053; 82550; 82948; 83605; 83690; 84484; 85025; 85610; 85730; 87040; 92920; 92950; 93005; 93454; 94002; C1769; C1887; C1894; G0378; J0171; J0282; J0461; J1265; J1644; J2250; J2405; J2470; J3010; J3490; J7060; J7070; Q9967; C1725; Q9965